=== PATIENT | male | born 1970 | race Caucasian/White ===

== ENCOUNTER 2022-03-05 12:59 | Emergency (ER) | payer OTHER, BC, SELFPAY ==
--- NOTE | ~2022-03-05 | CT_ITS ---
EXAMINATION: CT brain wo con DATE: 03/05/2022 14:27 INDICATION: Head injury TECHNIQUE: Computed tomography (CT) of the head was performed without intravenous contrast. Sagittal and coronal reconstructions were performed. The mA was adjusted according to patient size. Iterative reconstruction technique was employed. The dose-length product was 605.33 mGy-cm. COMPARISON: None FINDINGS: No fracture. No acute intracranial hemorrhage, acute infarction or abnormal extra axial fluid collect ion. Ventricles are normal and symmetric. No mass/mass effect. Mild mucosal thickening the bilateral ethmoid sinuses. The orbits, paranasal sinuses and mastoid air cells are normal. IMPRESSION: 1. No fracture or acute intracranial process. Reviewed, dictated and finalized at location A. TUBE SETTER
--- NOTE | ~2022-03-05 | CT_ITS ---
EXAMINATION: CT cervical spine wo con DATE: 03/05/2022 14:26 INDICATION: neckpain, head injury TECHNIQUE: Computed tomography (CT) of the cervical spine was performed without intravenous contrast. Automated exposure control and iterative reconstruction technique were employed. The dose-length pro duct was 386.93 mGy-cm. COMPARISON: None. FINDINGS: Vertebral Body Alignment: Intact. Cervical straightening as can occur with positioning or spasm. Craniocervical and atlantoaxial alignment: Mild degenerative change. Alignment intact. Osseous structures/fracture: No evidence of a lytic or blastic process in the visualized spine. No e vidence of acute fracture. . Cervical soft tissues: The paraspinal soft tissues planes are maintained. Degenerative changes: Degenerative changes, without severe neural foraminal or central canal narrowin g. IMPRESSION: No acute fracture or traumatic malalignment in the cervical spine Reviewed, dictated and finalized at location K. EF MATE
[2022-03-05 13:12] VITALS: BP 128/88; PULSE 86; RESP 16; TEMP 36.6; O2SAT 99
[2022-03-05 14:02] VITALS: BP 128/85; PULSE 79; RESP 16; TEMP 36.9; O2SAT 98
--- NOTE | 2022-03-05 14:09 | ED.WOUNDLAC ---
HPI - Wound/Laceration General Chief Complaint: Wound/Laceration Stated Complaint: laceration Time Seen by Provider: 03/05/22 13:44 History of Present Illness HPI narrative: 51-year-old male presents to the emergency room from work for evaluation of head injury. Patient states that he had his head on a semitruck when he was working on 1 hour prior to arrival. States he was bent over and when he abruptly stood up he struck his head on the vehicle. Denies loss of consciousness or altered mental status. States that he has some neck pain following the injury. Is able to move his neck with minimal pain. Patient also endorses dizziness lightheadedness. Denies visual or hearing changes. Patient refuses c-collar in triage. Patient does not take blood thinners Related Data Allergies Allergy/AdvReac Type Severity Reaction Status Date / Time No Known Allergies Allergy Verified 03/26/12 11:02 Review of Systems Review of Systems: CONSTITUTIONAL: Denies fever, chills, or sweats. EYES: Denies visual changes, redness, or discharge. ENT: Denies rhinorrhea, congestion, sore throat, or otalgia. CARDIOVASCULAR: Denies chest pain, palpitations, or edema. RESPIRATORY: Denies cough or dyspnea. GASTROINTESTINAL: Denies abdominal pain, nausea, vomiting, or diarrhea. GENITOURINARY: Denies dysuria or hematuria. SKIN: Denies rash or itching. MUSCULOSKELETAL: Denies back pain, joint pain, or myalgia. NEUROLOGIC: Reports headache, dizziness, lightheadedness PSYCHIATRIC: Denies anxiety or depression. Exam Narrative: GENERAL: Well-appearing, well-nourished, no physical limitations, and in no acute distress. HEAD: Normocephalic, superficial 2 cm laceration to the crown of the skull EYES: Conjunctivae normal, PERRLA and EOMI. ENT: External nose normal, Nares clear, no rhinorrhea or epistaxis. Mucous membranes moist. Oropharynx without tonsillar hypertrophy exudate or other lesions. External ears normal, bilateral TMs normal bilaterally NECK: Supple. CHEST: Clear to auscultation. No respiratory distress. No wheezes rales or rhonchi. No tenderness. HEART: Regular rate and rhythm. No murmur heard. Normal peripheral pulses. BACK: No midline cervical tenderness, step-offs, bony abnormality; FROM. There is bilateral paracervical muscles EXTREMITIES: Normal range of motion. No edema. No clubbing or cyanosis SKIN: Warm, dry, no rash. No noted wounds NEURO: No focal deficits. Alert and oriented x3. MAEW. CN's II-XI intact bilaterally, normal gait PSYCH: Cooperative. Normal mood and affect. Course Vital Signs Vital signs: Vital Signs Temperature 36.6 C 03/05/22 13:12 Pulse Rate 86 03/05/22 13:12 Respiratory Rate 16 03/05/22 13:12 Blood Pressure 128/88 03/05/22 13:12 Pulse Oximetry 99 03/05/22 13:12 Oxygen Delivery Room Air 03/05/22 13:12 Temperature 36.9 C 03/05/22 14:02 Pulse Rate 79 03/05/22 14:02 Respiratory Rate 16 03/05/22 14:02 Blood Pressure 128/85 03/05/22 14:02 Pulse Oximetry 98 03/05/22 14:02 Oxygen Delivery Room Air 03/05/22 14:02 MDM - Wound/Laceration Imaging Data Radiologist's impression: Impressions Head CT 03/05/22 14:31 IMPRESSION: 1. No fracture or acute intracranial process. Cervical Spine CT 03/05/22 14:40 IMPRESSION: No acute fracture or traumatic malalignment in the cervical spine Discharge Plan Discharge Clinical Impression: Head injury, Laceration Patient Disposition: Home, Self-Care Condition: Stable Instructions: Antibiotic Form, Head Injury (DC) Additional Instructions: May take Tylenol ibuprofen as needed for discomfort Follow-up/Referrals: Russell,ALLYSON Rashid [Primary Care Provider] - Time of Disposition: 15:12
[2022-03-05 15:35] VITALS: BP 128/84; PULSE 65; RESP 18; O2SAT 95
== END 2022-03-05 15:35 | disposition home or self-care (01) ==
PROVIDERS: Emergency Provider Nurse Practitioner Family; PCP Nurse Practitioner
DX: S01.91XA Laceration without foreign body of unspecified part of head, initial encounter (principal); W22.09XA Striking against other stationary object, initial encounter
CPT/HCPCS: 70450; 72125; 99284